=== PATIENT | female | born 1950 | race Caucasian/White ===

== ENCOUNTER 2018-02-14 12:09 | Emergency (ER) | payer MEDICARE, BC ==
[~2018-02-14] VITALS: Ht 157.5 cm; Wt 47.0 kg
[~2018-02-14 12:09] MED LIST: ZITHROMAX250 MG PO
[2018-02-14] MEDS ORDERED: BACTRIM DS1 TAB PO (13:37)
[2018-02-14] MEDS ORDERED: CEPHALEXIN500 M1 PO (13:37)
[2018-02-14] MEDS ORDERED: MUPIROCIN21 TOP (13:40)
[2018-02-14 14:05] VITALS: BP 156/70
== END 2018-02-14 14:05 | disposition home or self-care (01) ==
LOC: ED 12:09
DX: L03.011 Cellulitis of right finger (principal); M79.644 Pain in right finger(s)

== ENCOUNTER 2022-05-07 16:24 | Emergency (ER) | payer MEDICARE, BC ==
[~2022-05-07] VITALS: Ht 157.5 cm; Wt 50.0 kg
[~2022-05-07 16:24] MED LIST changes: +BACTRIM DS1 TAB PO; +CALCI10 XX; +CEPHALEXIN500 M1 PO; +MUPIROCIN21 TOP; +VITAMINS & PO
[2022-05-07] MEDS ORDERED: VIBRAMYCIN100 M2 PO (19:27)
[2022-05-07] MEDS ORDERED: TRAMADOL HCL50 MG PO (19:27)
[2022-05-07 20:41] VITALS: BP 144/69
== END 2022-05-07 20:44 | disposition home or self-care (01) ==
LOC: ED 16:24
PROC: 0H9FXZZ Drainage of Right Hand Skin, External Approach (ICD-10-PCS; principal; 2022-05-07)
DX: L02.511 Cutaneous abscess of right hand (principal); J45.909 Unspecified asthma, uncomplicated; H91.90 Unspecified hearing loss, unspecified ear

== ENCOUNTER 2022-05-09 09:15 | Emergency (ER) | payer MEDICARE, BC ==
[~2022-05-09] VITALS: Ht 157.5 cm; Wt 49.1 kg
[~2022-05-09 09:15] MED LIST changes: +TRAMADOL HCL50 MG PO; +VIBRAMYCIN100 M2 PO
[2022-05-09 09:27] VITALS: BP 179/87
[2022-05-09 09:31] VITALS: BP 169/143
[2022-05-09 09:46] VITALS: BP 176/77
[2022-05-09 10:00] VITALS: BP 191/82
[2022-05-09 10:31] VITALS: BP 196/89
[2022-05-09 10:34] VITALS: BP 196/89
== END 2022-05-09 10:44 | disposition home or self-care (01) ==
LOC: ED 09:15
DX: Z48.01 Encounter for change or removal of surgical wound dressing (principal); J45.909 Unspecified asthma, uncomplicated; H91.90 Unspecified hearing loss, unspecified ear

== ENCOUNTER 2023-07-31 17:19 | Emergency (ER) | payer MEDICARE, BC ==
[~2023-07-31] VITALS: Ht 157.5 cm; Wt 45.0 kg
[2023-07-31 17:46] VITALS: BP 144/70
[2023-07-31 18:01] VITALS: BP 125/62
[2023-07-31 18:05] LABS: BASO% 0.1 % (0-3); EOS% 2.9 % (0-8); HEMATOCRIT 36.6 % (37.0-47.0); HEMOGLOBIN 11.8 g/dl (12.0-16.0); IMMATURE GRANULOCYTES 0.1 % (0.0-5.0); LYMPH% 14.9 % (15-41); MEAN CELL VOLUME 99.5 fL CALC (80.0-100.0); MEAN CORPUSCULAR HGB 32.1 pG CALC (26.0-32.0); MEAN CORPUSCULAR HGB CONC 32.2 g/dL CAL (32.0-36.0); NEUT# 5.53 thou/uL (2.00-7.15); RED BLOOD COUNT 3.68 mill/uL (4.20-5.60); RED CELL DISTRI WIDTH 12.8 % (11.5-15.5)
[2023-07-31 18:15] VITALS: BP 123/61
[2023-07-31 18:30] VITALS: BP 130/64
[2023-07-31 18:41] LABS: ALBUMIN 3.7 g/dL (3.2-5.0); ALKALINE PHOSPHATASE 102 u/l (38-126); BILIRUBIN, TOTAL 0.4 mg/dL (0.02-1.3); BUN 17 mg/dL (8-23); BUN/CREATININE RATIO 19 (12-20 (CALC)); CARBON DIOXIDE 25 mmol/l (22-30); CHLORIDE 106 mmol/l (95-108); CREATININE 0.9 mg/dL (0.5-1.0); GFR FOR AFR.AMER. > 60 ML/MIN (>=60 (CALC)); GFR OTHER RACES > 60 ML/MIN (>=60 (CALC)); LIPASE 31 u/l (23-300); SGOT/AST 33 u/l (9-36); SODIUM 138 mmol/l (137-146); TOTAL PROTEIN 6.9 g/dL (6.3-8.2)
[2023-07-31 18:43] LABS: ANION GAP 11 (6-22 (CALC)); POTASSIUM 3.8 mmol/l (3.5-5.1)
[2023-07-31 18:45] VITALS: BP 108/60
[2023-08-01 02:04] VITALS: BP 108/60
== END 2023-08-01 02:04 | disposition left against medical advice (07) ==
LOC: ED 17:19
PROVIDERS: Family Medicine
DX: N82.5 Female genital tract-skin fistulae (principal); N74 Female pelvic inflammatory disorders in diseases classified elsewhere; J45.909 Unspecified asthma, uncomplicated; H91.90 Unspecified hearing loss, unspecified ear; Z53.29 Procedure and treatment not carried out because of patient's decision for other reasons
CPT/HCPCS: Q9967